=== PATIENT | female | born 1960 | race Caucasian/White ===

== ENCOUNTER 2017-10-26 17:46 | Emergency (ER) | payer BC, OTHER | END 2017-10-26 19:48 | disposition home or self-care (01) | LOC: SCSER 17:46 | DX: K05.20 Aggressive periodontitis, unspecified (principal); E11.9 Type 2 diabetes mellitus without complications; F41.9 Anxiety disorder, unspecified; F17.210 Nicotine dependence, cigarettes, uncomplicated | CPT/HCPCS: 99406 ==

== ENCOUNTER 2018-05-30 07:58 | Emergency (ER) | payer OTHER ==
[2018-05-30 08:27] LABS: Bilirubin Negative (Negative); Blood, Urine Negative (Negative); Clarity Clear (Clear); Glucose, Urine (Dipstick) Negative (Negative); Leukocyte Negative (Negative); Nitrite Negative (Negative); Protein, Urine (Dipstick) Negative (Neg-Trace); Urobilinogen 0.2 mg/dL (0.2-1.0); pH, Urine 5.5 (5.0-9.0)
[2018-05-30 08:30] LABS: #Basophils 0.1 thou/uL (0.0-0.2); #Monocytes 0.3 thou/uL (0.11-0.59); #Neutrophils 5.9 thou/uL (1.40-6.50); %Basophils 1.6 % (0.0-1.0); %Eosinophils 0.4 % (0.0-10.0); %Lymphocytes 23.6 % (21.0-51.0); %Neutrophils 70.4 % (42.0-75.0); Hemoglobin 16.4 g/dL (12.0-16.0); Mean Corpuscular HGB CONC 33.9 g/dL (32.0-36.0); Mean Corpuscular Hemoglobin 28.8 pg (27.0-31.0); Mean Corpuscular Volume 84.9 fL (78.0-98.0); Mean Platelet Volume 8.5 fL (7.4-10.4); Platelet Count 240 thou/uL (130-400); RBC Distribution Width 11.8 % (11.5-14.5); Red Blood Cell (RBC) Count 5.71 mill/uL (4.20-5.40); White Blood Cell (WBC) Count 8.4 thou/uL (4.8-10.8)
[2018-05-30 08:54] LABS: ALT (SGPT) 27 U/L (8-55); AST (SGOT) 26 U/L (5-34); Albumin 4.9 g/dL (3.5-5.0); Alkaline Phosphatase 82 U/L (40-150); Anion Gap 16 mmol/L (10-20); BUN (Urea Nitrogen) 14 mg/dL (9.8-20.1); Bilirubin, Total 0.4 mg/dL (0.2-1.2); Calc. Creatinine Clearance 0 mL/min (70-130); Calcium 10.4 mg/dL (7.8-10.44); Carbon Dioxide 23 mmol/L (22-29); Chloride 102 mmol/L (98-107); Estimated GFR-MDRD 77; Globulin 4.2 g/dL (2.4-3.5); Glucose 140 mg/dL (70-105); Lipase 24 U/L (8-78); Potassium 4.3 mmol/L (3.5-5.1); Protein, Total 9.1 g/dL (6.0-8.3); Sodium 137 mmol/L (136-145)
--- NOTE | 2018-05-30 09:10 | CT ---
CT OF THE ABDOMEN AND PELVIS WITHOUT CONTRAST: COMPARISON: None. History Right hip pain radiating into the back for 4 days. TECHNIQUE: Multiple contiguous axial images were obtained in a CT of the abdomen and pelvis without contrast. C oronal reformats were performed. FINDINGS: The patient is status post cholecystectomy and tubal ligation. The liver, adrenal glands, left kidne y, spleen, and pancreas are unremarkable. There are nonobstructing calcifications measuring up to 2 mm in the right kidney. Phleboliths are seen in the pelvis. The ureters cannot be completely follow ed to their insertion in the urinary bladder, but no significant hydroureter or hydronephrosis are se en. The reproductive organs are unremarkable. The large and small bowel are unremarkable. The appendix is unremarkable. No abdominal or pelvic lymphadenopathy are seen. Atherosclerotic calcifications ar e seen in the aorta. Mild degenerative changes are seen in the spine. The visualized inferior thorax and abdominal wall s oft tissues are unremarkable. IMPRESSION: Nonobstructing right renal calcifications. POS: QUAN
[2018-06-01 22:37] LABS: Chlamydia by PCR Not Detected (NotDetected); GC by PCR Not Detected (NotDetected)
== END 2018-05-30 09:24 | disposition home or self-care (01) ==
LOC: SCSER 07:58
DX: R10.31 Right lower quadrant pain (principal); M54.5 Low back pain; E78.5 Hyperlipidemia, unspecified; E11.9 Type 2 diabetes mellitus without complications; F41.9 Anxiety disorder, unspecified; F17.210 Nicotine dependence, cigarettes, uncomplicated; Z71.6 Tobacco abuse counseling
CPT/HCPCS: 36415; 74176; 80053; 81003; 83605; 83690; 85025; 87480; 87491; 87510; 87591; 87660; 99406

== ENCOUNTER 2019-06-08 08:38 | Outpatient (CLI) | payer OTHER ==
--- NOTE | 2019-06-08 09:11 | MMO ---
Bilateral MAMMO Bilat Diag [facility]. CLINICAL HISTORY: Patient is 59 years old and is seen for diagnostic exam and pain in the right breast. The patient has no family history of breast cancer. The patient has a history of Excisional Biopsy procedure revealed invasive mammary carcinoma. in the right breast in September,. The patient has a history of right Lumpectomy in September, - malignant. VIEWS: The views performed were: bilateral craniocaudal with tomosynthesis; bilateral mediolateral oblique with tomosynthesis; bilateral mediolateral with tomosynthesis; and right exaggerated craniocaudal. FILMS COMPARED: The present examination has been compared to prior imaging studies performed at [facility] on 04/16/2014, 09/15/2015, 09/23/2015 and 10/08/2015. MAMMOGRAM FINDINGS: There are scattered fibroglandular densities. There is a new post-surgical scar seen in the right breast. There are no suspicious masses, calcifications or areas of architectural distortion. There are no suspicious masses, suspicious calcifications, or new areas of architectural distortion. IMPRESSION: THERE IS NO MAMMOGRAPHIC EVIDENCE OF MALIGNANCY. A ROUTINE FOLLOW-UP MAMMOGRAM IN 1 YEAR IS RECOMMENDED. THE RESULTS OF THIS EXAM WERE SENT TO THE PATIENT. ACR BI-RADS Category 2 - Benign finding MAMMOGRAPHY NOTE: 1. A negative mammogram report should not delay a biopsy if a dominant of clinically suspicious mass is present. 2. Approximately 10% to 15% of breast cancers are not detected by mammography. 3. Adenosis and dense breasts may obscure an underlying neoplasm. Reported by: RUMA JESUS MD Electonically Signed: [id number]
== END 2019-06-08 08:39 | disposition home or self-care (01) ==
LOC: BICMAMMO 08:38
PROVIDERS: ATTEND Family Medicine
DX: N64.4 Mastodynia (principal)
CPT/HCPCS: 77066; G0279

== ENCOUNTER 2021-04-30 11:27 | Outpatient (CLI) | payer OTHER | END 2021-04-30 11:28 | disposition home or self-care (01) | LOC: BICRAD 11:27 | PROVIDERS: ATTEND Family Medicine | DX: M54.10 Radiculopathy, site unspecified (principal); R91.8 Other nonspecific abnormal finding of lung field | CPT/HCPCS: 71046 ==

== ENCOUNTER 2023-09-03 15:23 | Observation (INO) | payer OTHER ==
[2023-09-03 17:29] VITALS: BMI 20.5
[2023-09-03] MEDS ORDERED: Glucagon 1 MG/ML KIT IM PRN (18:05)
[2023-09-03] MEDS ORDERED: Acetaminophen 325 MG TAB PO PRN (18:05)
[2023-09-03] MEDS ORDERED: Dextrose 50% Abboject 50 ML SYRINGE SLOW IVP PRN (18:05)
[2023-09-03] MEDS ORDERED: Ipratropium Bromide 2.5 ml Neb NEB PRN (18:05)
[2023-09-03] MEDS ORDERED: Dextrose 5% in Water 1,000 ML IV PRN (18:05)
[2023-09-03] MEDS: Ipratropium/Albuterol 3 ML NEB NEB SCH ×2 (19:04→23:21)
[2023-09-03] MEDS: Famotidine 20 MG TAB PO SCH (20:41)
[2023-09-03] MEDS: Insulin Regular 300 UNITS/3 ML VIAL SC PRN (22:00)
[2023-09-03] MEDS: methylPREDNISolone Sod Succ 40 MG VIAL IVP SCH (23:30)
[2023-09-04 04:52] VITALS: TEMP 97.8
[2023-09-04] MEDS: Insulin Regular 300 UNITS/3 ML VIAL SC PRN ×2 (06:10→11:44)
[2023-09-04] MEDS: methylPREDNISolone Sod Succ 40 MG VIAL IVP SCH ×2 (06:10→13:16)
[2023-09-04] MEDS ORDERED: Loratadine 10 MG TAB PO PRN (07:44)
[2023-09-04] MEDS: Famotidine 20 MG TAB PO SCH (09:11)
[2023-09-04] MEDS: Ipratropium/Albuterol 3 ML NEB NEB SCH ×2 (10:52→12:33)
[2023-09-04 12:15] VITALS: BP 153/77
[2023-09-04] MEDS ORDERED: Insulin Glargine 30 UNITS/0.3 ML VIAL SC SCH (21:00)
[2023-09-04] MEDS ORDERED: Rosuvastatin 5 MG TAB PO SCH (21:00)
[2023-09-06] MEDS ORDERED: FLU VACC QS2023-24(6MOS UP)/PF 60 MCG/0.5 ML SYRINGE IM ONE (09:00)
== END 2023-09-04 14:21 | disposition home or self-care (01) ==
LOC: MSONC 15:23
PROVIDERS: ADMIT Internal Medicine; ATTEND Internal Medicine
DX: J44.1 Chronic obstructive pulmonary disease with (acute) exacerbation (principal); E11.9 Type 2 diabetes mellitus without complications; E78.5 Hyperlipidemia, unspecified; R06.2 Wheezing; Z91.018 Allergy to other foods; F17.210 Nicotine dependence, cigarettes, uncomplicated; Z88.6 Allergy status to analgesic agent; Z88.0 Allergy status to penicillin; Z88.2 Allergy status to sulfonamides; Z88.1 Allergy status to other antibiotic agents; Z90.11 Acquired absence of right breast and nipple; Z90.49 Acquired absence of other specified parts of digestive tract; Z79.899 Other long term (current) drug therapy
CPT/HCPCS: 36416; 71045; 80053; 83735; 83880; 84484; 85025; 93005; 94640; 96372; 96374; 96376; G0378; J1650; J1815; J2920; J7512; J7611; J7620

== ENCOUNTER 2024-11-01 10:22 | Outpatient (CLI) | payer MEDICARE | END 2024-11-01 10:23 | disposition home or self-care (01) | LOC: BICRAD 10:22 | PROVIDERS: ATTEND Nurse Practitioner Family | DX: R06.2 Wheezing (principal); R91.8 Other nonspecific abnormal finding of lung field | CPT/HCPCS: 71046 ==